=== PATIENT | male | born 1965 ===

== ENCOUNTER 2021-03-20 06:11 | Day surgery (SDC) | payer OTHER ==
[2021-03-20] MEDS ORDERED: TYLENOL ARTHRI650 MG PO (07:39)
[2021-03-20] MEDS ORDERED: ULTRAM50 MG PO (07:39)
[2021-03-20] MEDS ORDERED: NEURONTIN300 MG PO (07:39)
[2021-03-20] MEDS ORDERED: MIRALAX17 GM PO (07:39)
== END 2021-03-20 12:35 | disposition home or self-care (01) ==
LOC: CIR.AMB 06:11
PROVIDERS: ATTEND Surgery
DX: K43.6 Other and unspecified ventral hernia with obstruction, without gangrene (principal)